=== PATIENT | male | born 1995 | race Asian ===

== ENCOUNTER 2023-11-05 12:32 | Emergency (ER) | payer OTHER, SELFPAY ==
[2023-11-05 12:32] VITALS: BP 234/144; PULSE 91; RESP 15; TEMP 37; O2SAT 98; BMI 30.7
[2023-11-05 12:36] VITALS: BP 234/144; PULSE 87; O2SAT 98
[2023-11-05 13:00] VITALS: BP 220/131; PULSE 84; O2SAT 98
[2023-11-05 13:06] VITALS: BP 203/122; PULSE 81; O2SAT 98
--- NOTE | 2023-11-05 13:22 | ED.GENADULT ---
HPI - General Adult General Chief complaint: Hypertension Stated complaint: Hypertensive crisis Time Seen by Provider: 11/05/23 13:06 Source: patient Mode of arrival: EMS History of Present Illness HPI narrative: Patient is a 27-year-old otherwise healthy male who was brought to the emergency department by EMS for evaluation of hypertension he is active duty. He went to go get a routine MRI of his left wrist. He had his blood pressure checked prior to the MRI and it was elevated. He did not have the MRI and was sent to the emergency department by paramedics. Patient is asymptomatic. Reports no headache, vision changes, shortness of breath, lower extremity swelling. He states he has been diagnosed with high blood pressure in the past. Has been on lisinopril in the past. Has gone through a plan with his primary doctor that now he only takes lisinopril? when I need it? he has not taken lisinopril in over a week. Related Data Allergies Allergy/AdvReac Type Severity Reaction Status Date / Time No Known Drug Allergies Allergy Verified 11/05/23 12:37 Review of Systems Review of Systems ROS Unobtainable: All systems reviewed & are unremarkable except as noted in HPI and below Constitutional Constitutional: Reports system reviewed and no additional complaints, except as documented Cardiovascular Cardiovascular: Reports system reviewed and no additional complaints, except as documented Respiratory Respiratory: Reports system reviewed and no additional complaints, except as documented Gastrointestinal Gastrointestinal: Reports system reviewed and no additional complaints, except as documented Genitourinary Genitourinary: Reports system reviewed and no additional complaints, except as documented Integumentary/Breasts Skin/Breast: Reports system reviewed and no additional complaints, except as documented Neurologic Neurologic: Reports system reviewed and no additional complaints, except as documented Hematologic/Lymphatic On Anticoagulants: No Patient History Social History Smoking Status: Unknown if ever smoked Smoking Status: Unknown if ever smoked alcohol intake frequency: holidays/special occasions only Substance Use Type: does not use Exam Initial Vital Signs Initial Vital Signs: Vital Signs Temperature 98.6 F 11/05/23 12:32 Pulse Rate 91 H 11/05/23 12:32 Respiratory Rate 15 11/05/23 12:32 Blood Pressure 234/144 H 11/05/23 12:32 Pulse Oximetry 98 11/05/23 12:32 Oxygen Delivery Method Room Air 11/05/23 12:32 Const General: cooperative, comfortable and No ill appearing [facility] Head: normal to inspection and normocephalic Resp Effort & Inspection: normal respiratory effort Auscultation: clear to auscultation bilaterally Cardio Rate: regular rate Rhythm: regular rhythm Skin General: no rashes or lesions noted Neuro General: patient alert, patient awake and moves all extremities Extrem General: No edema Course Orders Ordered: Discontinued Medications Lisinopril (Lisinopril 20 Mg Tablet) 40 mg PO NOW ONE Stop: 11/05/23 13:20 Last Admin: 11/05/23 13:29 Dose: 40 mg Documented By: DYLLAN Vital Signs Vital signs: Vital Signs - 8 hr 11/05/23 12:32 11/05/23 12:36 11/05/23 12:36 Temperature 98.6 F Pulse Rate 91 H 87 Respiratory Rate 15 Blood Pressure 234/144 H 234/144 H Pulse Oximetry 98 98 Oxygen Delivery Method Room Air 11/05/23 13:00 11/05/23 13:00 11/05/23 13:06 Temperature Pulse Rate 84 81 Respiratory Rate Blood Pressure 220/131 H Pulse Oximetry 98 98 Oxygen Delivery Method 11/05/23 13:06 11/05/23 13:29 11/05/23 13:40 Temperature Pulse Rate 80 86 Respiratory Rate 14 Blood Pressure 203/122 H 216/144 H 214/125 H Pulse Oximetry 99 Oxygen Delivery Method Room Air Medical Decision Making [facility] Narrative Medical decision making narrative: Patient has asymptomatic hypertension. Plan will be to start him back on his lisinopril. He was given a dose here in the ER. He has a prescription for this that he can take at home. Based on current guidelines because he was asymptomatic no indication for workup here in the ER. Low suspicion for ACS, CVA. Patient was given return precautions. She expressed understanding and agreement. Discharge Plan Departure Patient Disposition: Home Clinical Impression: Hypertension Instructions: DI for High Blood Pressure Activity Restrictions/Additional Instructions: I recommend that you start taking the 40 mg of lisinopril on a daily basis in the morning. Take your blood pressure at home like we discussed. Contact your primary doctor for follow-up. Return to the emergency department for new or worsening symptoms. Referrals: ProviderJimmie [Primary Care Provider] - Stand Alone Forms: Patient Portal/API
[2023-11-05 13:29] VITALS: BP 216/144; PULSE 80
[2023-11-05] MEDS: lisinopriL 20 MG TABLET 40 MG PO (13:29)
[2023-11-05 13:40] VITALS: BP 214/125; PULSE 86; RESP 14; O2SAT 99
== END 2023-11-05 13:41 | disposition home or self-care (01) ==
PROVIDERS: Emergency Provider Emergency Medicine
DX: I10 Essential (primary) hypertension (principal)
CPT/HCPCS: 99283